=== PATIENT | male | born 1980 | race Caucasian/White ===

== ENCOUNTER 2024-03-08 22:57 | Emergency (ER) | payer OTHER ==
[2024-03-08 23:34] LABS: BASOPHILS % (AUTO) 0.4 %; EOSINOPHILS # (AUTO) 0.1 10^3/uL (0.0-0.7); EOSINOPHILS % (AUTO) 1.9 %; HCT - HEMATOCRIT 41.8 % (42.0-52.0); HGB - HEMOGLOBIN 13.5 g/dL (14.0-18.0); LYMPHOCYTES # (AUTO) 1.9 10^3/uL (1.5-3.5); LYMPHOCYTES % (AUTO) 26.9 %; MEAN CORPUSCULAR HEMOGLOBIN 29.5 pg (27.0-31.0); MEAN CORPUSCULAR HGB CONC 32.3 g/dL (32.0-36.0); MEAN CORPUSCULAR VOLUME 91.3 fL (80.0-94.0); MEAN PLATELET VOLUME 9.9 fL (7.4-11.4); MONOCYTES # (AUTO) 0.5 10^3/uL (0.0-1.0); MONOCYTES % (AUTO) 7.5 %; NEUTROPHILS # (AUTO) 4.4 10^3/uL (1.5-6.6); NEUTROPHILS % (AUTO) 63.2 %; PLT - PLATELET COUNT 190 10^3/uL (130-450); RED BLOOD COUNT 4.58 10^6/uL (4.70-6.10); RED CELL DISTRIBUTION WIDTH 12.6 % (12.0-15.0)
[2024-03-08 23:37] LABS: BILIRUBIN,URINE NEGATIVE (NEGATIVE); GLUCOSE, URINE (UA) NEGATIVE (NEGATIVE); KETONES,URINE (UA) NEGATIVE (NEGATIVE); LEUKOCYTE ESTERASE, URINE NEGATIVE (NEGATIVE); NITRITE,URINE NEGATIVE (NEGATIVE); OCCULT BLOOD,URINE NEGATIVE (NEGATIVE); PH,URINE 6.5 PH (5.0-7.5); PROTEIN,URINE TRACE mg/dL (NEGATIVE); UROBILINOGEN,URINE 1 (NORMAL) E.U./dL (NORMAL)
[2024-03-08 23:44] LABS: CLARITY,URINE CLEAR (CLEAR)
[2024-03-08 23:47] LABS: ALBUMIN 4.5 g/dL (3.2-5.5); ALBUMIN/GLOBULIN RATIO 2.1 (1.0-2.2); BILIRUBIN,TOTAL 0.6 mg/dL (0.2-1.0); CALCIUM 9.6 mg/dL (8.5-10.3); CREATININE 1.1 mg/dL (0.6-1.3); POTASSIUM 3.7 mmol/L (3.5-4.5); TOTAL PROTEIN 6.6 g/dL (6.4-8.9)
--- NOTE | 2024-03-09 00:10 | ED Physician Documentation ---
History of Present Illness - Stated complaint Stated Complaint: R SIDE HIP/LEG PX - Chief complaint Chief Complaint: General - History obtained from History obtained from: Patient - Additonal information Additional information: HPI from patient. Patient c/o sudden onset right flank and right lower back pain radiating to right hip (where pain is most pronounced), right testicle, and down back of righ t leg to upper calf. Onset while walking at approximately 7:30 PM this evening. No fall nor injury, denies h/o similar symptoms. Exacerbated with movement involving lower back, right hip. He is able to fully weight-bear on RLE with only mild exacerbation when weight-bearing. Denies numbness, weakness, bowel/bladder incontinence. Denies n/v. PD PAST MEDICAL HISTORY - Past Medical History Past Medical History: Yes Cardiovascular: None Respiratory: None Neuro: None Endocrine/Autoimmune: None GI: None : None HEENT: None Psych: Depression Musculoskeletal: None Derm: None - Past Surgical History Past Surgical History: Yes General: Other - Present Medications Home Medications: Ambulatory Orders Medication Instructions Recorded Confirmed Oxycodone HCl/Acetaminophen 1 - 2 each PO Q6H PRN #14 tablet 03/09/24 [Percocet 5-325 mg Tablet] - Allergies Allergies/Adverse Reactions: Allergies Allergy/AdvReac Type Severity Reaction Status Date / Time No Known Drug Allergies Allergy Verified 03/08/24 23:10 - Social History Does the pt smoke?: No Smoking Status: Never smoker Does the pt drink ETOH?: Yes Does the pt have substance abuse?: No - Immunizations Immunizations are current?: Yes - POLST Patient has POLST: No PD ED PE NORMAL - Vitals Vital signs reviewed: Yes - General General: Alert and oriented X 3, No acute distress, Well developed/nourished - Cardiac Cardiac: RRR, No murmur - Respiratory Respiratory: No respiratory distress, Clear bilaterally - Abdomen Abdomen: Normal bowel sounds, Soft, Non distended, Other (mild TTP right inguinal canal without visible nor palpable mass/hernia) - Male Male : Other (right hemiscrotum and right testicle are nontender; no erythema, no swelling) - Back Back: No CVA TTP, No spinal TTP - Derm Derm: No rash - Extremities Extremities: No tenderness to palpate, Normal ROM s pain - Neuro Neuro: No motor deficit (5/5 bilateral dorsi/plantarflexion) Results - Vitals Vitals: Oxygen O2 Source Room air - Labs Labs: Laboratory Tests 03/08/24 03/08/24 03/08/24 23:23 23:23 23:30 WBC 7.0 RBC 4.58 L Hgb 13.5 L Hct 41.8 L MCV 91.3 MCH 29.5 MCHC 32.3 RDW 12.6 Plt Count 190 MPV 9.9 Neut # (Auto) 4.4 Lymph # (Auto) 1.9 [place] # (Auto) 0.5 Eos # (Auto) 0.1 Baso # (Auto) 0.0 Absolute Nucleated RBC 0.00 Nucleated RBC % 0.0 Sodium 135 Potassium 3.7 Chloride 101 Carbon Dioxide 26 Anion Gap 8.0 BUN 19 Creatinine 1.1 Estimated GFR (MDRD) 73 L Glucose 139 H Calcium 9.6 Total Bilirubin 0.6 AST 17 ALT 25 Alkaline Phosphatase 69 Total Protein 6.6 Albumin 4.5 Globulin 2.1 Albumin/Globulin Ratio 2.1 Lipase 29 Urine Color YELLOW Urine Clarity CLEAR Urine pH 6.5 Ur Specific [place] 1.025 Urine Protein TRACE Urine Glucose (UA) NEGATIVE Urine Ketones NEGATIVE Urine Occult Blood NEGATIVE Urine Nitrite NEGATIVE Urine Bilirubin NEGATIVE Urine Urobilinogen 1 (NORMAL) Ur Leukocyte Esterase NEGATIVE Ur Microscopic Review NOT INDICATED Urine Culture Comments NOT INDICATED - Rads (name of study) CT A/P with IV contrast Relevant Findings:: Prelim report reviewed, See rad report PD Medical Decision Making - ED course Complexity details: reviewed results, re-evaluated patient, considered differential, d/w patient ED course: GIven 1mg IV dilaudid, 30mg IV toradol. Patient reports good analgesia with these interventions. No concerning nor diagnostic results on CBC. ER abdominal panel is entirely normal with insignificant exceptions of glucose 139, GFR 73. CT A/P with IV contrast is also unremarkable. nonobstructing right renal calculus noted. Results d/w patient, return precautions reviewed. We discussed lack of diagnostic findings at this time and thus cause of his symptoms is not apparent. Advised to seek follow up with PCP for reevaluation. Departure - Departure Disposition: 01 Home, Self Care Clinical Impression: Flank pain Condition: Good Instructions: ED Acute Pain [facility] Follow-Up: JORGE LUIS SERRANO PA [Primary Care Provider] - Prescriptions: Oxycodone HCl/Acetaminophen [Percocet 5-325 mg Tablet] 1 - 2 each PO Q6H PRN #14 tablet PRN Reason: pain Comments: There were no concerning nor diagnostic findings on tonight's test, including the blood tests, urinalysis, and the CT scan of your abdomen and pelvis. The cause of your symptoms is not apparent at this time. Contact your primary care provider's office later this morning when they open to arrange for the next available appointment for follow-up/reevaluation. I have electronically submitted a prescription for Percocet (narcotic/opiate pain medication (to the [facility] pharmacy in [place]. I am prescribing a short course of narcotic pain medication for you. These are potentially dangerous and addictive medications that should be used carefully. These medications may constipate you. Take an [id number] stool softener (docusate) twice daily with plenty of water while taking these medications. If you go 24 hours without a bowel movement, take [id number] miralax, per package instructions. Do not drink or drive while taking these medications. If you received narcotic or sedating medications while in the emergency department, do not drive for 24 hours. Store this medication in a safe, secure place and out of reach of children. It is a violation of federal law to give or sell this medication to another person or to use in a manner other than prescribed. The ED will not refill narcotic prescriptions, including prescriptions lost or stolen. To dispose of unwanted medications: 1. [facility]'s [facility] at [address] in [place] has a medication drop box. They accept prescription medications (in pill form) Wednesday through Wednesday 9:00 a.m. to 5:00 p.m. 2. [facility] accepts prescription medications (in pill form only) for disposal year round. Call for more information. 3. Contact the [facility] for the next [facility] sponsored prescription d rug collection event. , [phone], or [phone]; Discharge Date/Time: 03/09/24 01:45
[2024-03-09] MEDS ORDERED: iohexoL-300 100 ML VIAL ONE (00:30)
[2024-03-09] MEDS: KETOROLAC 30 MG/ML VIAL IVP STA (00:41)
[2024-03-09] MEDS: HYDROmorphone 1 MG/ML CARPUJECT IVP STA (00:43)
[2024-03-09] MEDS: iohexoL-300 100 ML VIAL IVP ONE (00:59)
--- NOTE | 2024-03-09 01:12 | CT Report ---
PROCEDURE: Abdomen/Pelvis W INDICATIONS: right flank/RLQ/right groin pain CONTRAST: OMNI 300,100MLS TECHNIQUE: After the administration of intravenous contrast, a CT scan of the abdomen and pelvis was performed. Images were recorded and evaluated at appropriate window settings. Reformats: coronal and sagittal. F or radiation dose reduction, the following was used: automated exposure control, adjustment of mA and /or kV according to patient size. COMPARISON: None FINDINGS: Image quality: Diagnostic Lower chest: Basal atelectasis. Normal heart size Liver: Unremarkable Gallbladder and biliary system: Unremarkable, nondilated Pancreas: No ductal dilation Spleen: Nonenlarged Adrenals: No discrete nodules Kidneys: No solid mass or hydronephrosis. Nonobstructing right renal calculus. There is a probable phlebolith adjacent the left UVJ, no signifi cant dilation Vessels and lymph nodes: The main portal vein is patent. No abdominal aortic aneurysm. No pathologic lymph nodes by size criteria. Bowel and peritoneum: Mild to moderate gastric distention. No acute small bowel obstruction. Moderate fecal loading. The appendix is nondilated. Body wall: Unremarkable Pelvis: Bladder is unremarkable. Prostate is not well eval on this study, overall unremarkable Bones: No acute or suspicious osseous finding. There are mild degenerative changes. IMPRESSION: Moderate fecal loading. No small bowel obstruction. Nondilated appendix. Nonobstructing punctate right renal calculus. No hydronephrosis. Tiny calcification adjacent to the left UVJ, without upstream dilation, favored to represent a phlebo lith Other findings above. Reviewed by: Grey Husain MD on 03/09/2024 1:11 AM PDT Approved by: Grey Husain MD on 03/09/2024 1:11 AM PDT Station ID: [id number]
[2024-03-09 01:18] VITALS: BP 132/93; O2SAT 97
[2024-03-09] MEDS: oxyCODONE/ACET 5/325 Prepack 4 PO STA (01:44)
== END 2024-03-09 01:45 | disposition home or self-care (01) ==
LOC: ED 22:57
DX: R10.9 Unspecified abdominal pain (principal); M54.50 Low back pain, unspecified; M25.551 Pain in right hip
CPT/HCPCS: 36415; 74177; 80053; 81003; 83690; 85025; 96374; 96375; 99284; J1170; Q9967; 81001; 87086